=== PATIENT | male | born 1940 | race Caucasian/White ===

== ENCOUNTER → 2021-08-24 12:21 | Outpatient (CLI) | payer MEDICARE, OTHER, SELFPAY ==
--- NOTE | 2021-08-24 | DI.RAD.S_ITS ---
PROCEDURE: FL BARIUM SWALLOW W SPEECH INDICATIONS: PRODUCTIVE COUGH/RECURRENT PNEUMONIA/HX CVA COMPARISON: TECHNIQUE: Examination was conducted in conjunction with speech pathology per standard protocol. In the lateral projection, filming was performed of the patient swallowing. AP projection filming may also be performed with patient swallowing. COMPARISON: [facility], CR, XR CERVICAL SPINE 2 OR 3 VIEWS, 06/16/2017, 14:14. FINDINGS: Function: The oral preparatory phase appears normal, with proper containment. The subsequent oral propulsive phase, pharyngeal phase, and esophageal phase of swallowing also appear normal with all proffered substances. No laryngotracheal penetration or aspiration. No pathologic vallecular pooling. Morphology: No cricopharyngeal bar is identified. No cervical esophageal webs. No Zenker's diverticulum. No strictures. IMPRESSION: No laryngeal penetration or aspiration. Please see separate speech pathologist's report. Dictated by: Danni England M.D. on 08/24/2021 at 16:16 Approved by: Danni England M.D. on 08/24/2021 at 16:17
--- NOTE | 2021-08-25 16:34 | ST.SWALLOW ---
Visit Care Team Role Provider Type Attending Provider Primary Care Provider Referring Provider Specialty: Address: Phone: Fax: Email: ST Modified Barium Swallow Study OCCUPATIONAL SAFETY AND HEALTH MANAGER Clinical Instructor Line Start: 08/25/21 12:04 Freq: Status: Active Protocol: Document 08/25/21 12:05 SHERYL (Rec: 08/25/21 12:05 SHERYL [id number]) Clinical Instructor Signature Clinical Instructor Clinical Instructor Yes OCCUPATIONAL SAFETY AND HEALTH MANAGER Modified Barium Swallow Study Start: 08/24/21 12:52 Freq: Status: Active Protocol: Document 08/24/21 12:52 EK (Rec: 08/24/21 12:53 EK [id number]) Modified Barium Swallow Study Total Time Visit Start Time 13:30 Visit Stop Time 13:55 Total Visit Minutes 25 Visit Information Insurance Information Medicare Referral Referring Physician Honey Peterson MD Reason for Referral Productive cough, recurrent pneumonia, Hx CVA Setting Setting Outpatient Care Patient Information Patient History Pt is a 81-year-old male who recently experienced a case of suspected pneumonia with a productive cough. Pt hx is also significant for a stroke in 2002. Pt reports that cough is improved and only occasionally coughs while eating tangy food like ketchup. Subjective Observations Pt arrived on time and unaccompanied. Pt's speech was difficult to understand, characterized as imprecise, effortful, quiet, and breathy. Assessment conducted and note written by student OCCUPATIONAL SAFETY AND HEALTH MANAGER Luz Marina Mendez under OCCUPATIONAL SAFETY AND HEALTH MANAGER supervision. Patient Positioning Position View Lat-A/P Imaging Lateral View Textures Administered Trials Presented Thin Liquid via Spoon,Thin Liquid via Cup,Modale Liquid via Spoon,Modale Liquid via Cup,Honey Liquid via Spoon, Dysphagia Blenderized Textures ,Regular Textures Oral Phase Source: MBSIMP (TM) (C) Bolus Specific Scoring Grid Lip Closure No Impairment (WNL) Tongue Control During Bolus Hold WFL Bolus Prep/Mastication No Impairment (WNL) Bolus Transport/Lingual Motion No Impairment (WNL) A/P Lingual Propulsion Delay No Oral Residue No Impairment (WNL) Residue Clearing No Impairment (WNL) Nasal Regurgitation No Additional Oral Phase Observations Oral Peripheral Exam: Features were symmetrical and WNL for strength and ROM for age. Some discoordination noted when transferring air from cheek to cheek, this slightly improved with min cueing. Oral swallow phase: With barium paste, the pt exhibited lingual rocking for a/p propulsion requiring multiple swallows to clear. Premature spillage to the level of the valleculae was noted with regular texture but no penetration/aspiration occurred and cleared when swallow reflex was eventually triggered. Overall, pt masticated bolus and cleared the oral cavity in a timely manner. Pharyngeal Phase Source: MBSIMP (TM) (C) Bolus Specific Scoring Grid Soft Palate Elevation No Impairment (WNL) Tongue Base Strength/Range of Motion No Impairment (WNL) Residue Along the Tongue Base No Laryngeal Elevation No Impairment (WNL) Anterior Hyoid Movement WFL Epiglottic Range of Motion WFL Vallecular Residue Yes Clearance of Vallecular Residue WFL Laryngeal Vestibular Closure No Impairment (WNL) Pharyngeal Stripping Wave No Impairment (WNL) Pharyngeal Contraction No Impairment (WNL) Posterior Pharyngeal Wall Residue No Upper Esophageal Sphincter Opening No Impairment (WNL) Residue in the Pyriform Sinuses Yes Clearance of Residue in the Pyriform No Impairment (WNL) Sinuses Esophageal Clearance Upright Position No Impairment (WNL) Pharyngoesophageal Backflow Observed No Additional Pharyngeal Phase Observations Across various textures, occasional trace to mild residue was noted on the valleculae and aryepiglottic folds. When this occurred, it also cleared with subsequent swallows. No penetration/ aspiration occurred during this study. A/P View Textures Administered Trials Presented Modale Liquid via Cup, Dysphagia Blenderized Textures ,Barium Tablet A/P View Observations Pharyngeal Contraction No Impairment (WNL) Vocal Fold Function Good Esophageal Function No Impairment (WNL) Esophageal Clearance Upright Position No Impairment (WNL) Clinical Impressions Dysphagia Type WNL Findings Pt's swallow was WNL accross textures for his age. Patient Appropriate for Therapy No Recommendations Diet Liquids Order Thin Diet Order Regular Medication Recommendation As Tolerated
== END ==
DX: R05.8 Other specified cough (principal); I69.30 Unspecified sequelae of cerebral infarction; I69.320 Aphasia following cerebral infarction; J18.9 Pneumonia, unspecified organism; Z91.89 Other specified personal risk factors, not elsewhere classified
CPT/HCPCS: 74230; 92611